=== PATIENT | female | born 1950 | race Caucasian/White ===

== ENCOUNTER 2019-06-06 13:42 | Emergency (ER) | payer MEDICARE, BC ==
[~2019-06-06] VITALS: Ht 165.1 cm; Wt 96.0 kg
[2019-06-06] MEDS ORDERED: HYDROcodone/acetaminophen 10/325mg tab PO ONE (15:25)
[2019-06-06] MEDS ORDERED: HYDR-4353 PO (16:08)
--- NOTE | 2019-06-06 16:17 | NUR ---
Waiting for tool and die technician to place splint.
--- NOTE | 2019-06-06 16:47 | NUR ---
CALLED ASSEMBLY TECHNICIAN [employer] [phone] NO ANSWER LEFT MESSAGE
[2019-06-06 17:24] VITALS: BP 145/88
--- NOTE | 2019-06-06 17:31 | NUR ---
public health technician coming on at 1800 for splint
--- NOTE | 2019-06-06 17:56 | NUR ---
medical imaging tech at bedside for splint.
[2019-06-06] MEDS ORDERED: HYDR-4383 PO (17:59)
--- NOTE | 2019-06-06 18:39 | NUR ---
PT FAMILY HERE TO INSURANCE BROKER PATIENT PT WHEELED TO CAR IN WHEEL CHAIR. NO QUESTIONS ASKED PT VERBALIZED UNDERSTANDING . TRANSFER SELF OUT OF WHEEL TO CHAIR WITHOUT INCIDENT .
== END 2019-06-06 18:40 | disposition home or self-care (01) ==
LOC: ER 13:43
DX: S82.841A Displaced bimalleolar fracture of right lower leg, initial encounter for closed fracture (principal); Z88.0 Allergy status to penicillin; Z79.899 Other long term (current) drug therapy; W01.0XXA Fall on same level from slipping, tripping and stumbling without subsequent striking against object, initial encounter; Y93.89 Activity, other specified; Y92.89 Other specified places as the place of occurrence of the external cause; Y99.8 Other external cause status
CPT/HCPCS: 29515; 73610; 99284

== ENCOUNTER 2019-06-23 15:11 | Outpatient (CLI) | payer MEDICARE, BC ==
[~2019-06-23 15:11] MED LIST: HYDR-4383 PO
== END 2019-06-23 17:00 | disposition home or self-care (01) ==
LOC: ORTHO 15:11
PROVIDERS: ATTEND Orthopaedic Surgery
DX: S82.841A Displaced bimalleolar fracture of right lower leg, initial encounter for closed fracture (principal); Z88.0 Allergy status to penicillin; Z79.899 Other long term (current) drug therapy; W01.0XXA Fall on same level from slipping, tripping and stumbling without subsequent striking against object, initial encounter; Y93.89 Activity, other specified; Y92.89 Other specified places as the place of occurrence of the external cause; Y99.8 Other external cause status
CPT/HCPCS: 73610; A4590; G0463

== ENCOUNTER 2019-07-14 15:50 | Outpatient (CLI) | payer MEDICARE, BC | END 2019-07-14 16:15 | disposition home or self-care (01) | LOC: ORTHO 15:50 | PROVIDERS: ATTEND Orthopaedic Surgery | DX: S82.491D Other fracture of shaft of right fibula, subsequent encounter for closed fracture with routine healing (principal); S82.51XA Displaced fracture of medial malleolus of right tibia, initial encounter for closed fracture; X58.XXXD Exposure to other specified factors, subsequent encounter; X58.XXXA Exposure to other specified factors, initial encounter; Y93.89 Activity, other specified; Y92.89 Other specified places as the place of occurrence of the external cause; Y99.8 Other external cause status; M77.31 Calcaneal spur, right foot | CPT/HCPCS: 73610; A4590; G0463 ==

== ENCOUNTER 2019-08-11 15:25 | Outpatient (CLI) | payer MEDICARE, BC | END 2019-08-11 16:12 | disposition home or self-care (01) | LOC: ORTHO 15:25 | PROVIDERS: ATTEND Orthopaedic Surgery | DX: S82.61XD Displaced fracture of lateral malleolus of right fibula, subsequent encounter for closed fracture with routine healing (principal); S82.51XD Displaced fracture of medial malleolus of right tibia, subsequent encounter for closed fracture with routine healing; M79.89 Other specified soft tissue disorders; M77.31 Calcaneal spur, right foot; X58.XXXD Exposure to other specified factors, subsequent encounter | CPT/HCPCS: 73610; G0463 ==

== ENCOUNTER 2024-03-06 09:29 | Emergency (ER) | payer MEDICARE, BC ==
[~2024-03-06] VITALS: Ht 165.1 cm; Wt 99.5 kg
[2024-03-06 11:10] VITALS: BP 157/73; PULSE 53; RESP 17; TEMP 98.2; O2SAT 98
== END 2024-03-06 11:12 | disposition home or self-care (01) ==
LOC: ER 09:29
DX: S93.401A Sprain of unspecified ligament of right ankle, initial encounter (principal); Z88.0 Allergy status to penicillin; Z91.012 Allergy to eggs; Z91.041 Radiographic dye allergy status; Z79.899 Other long term (current) drug therapy; X58.XXXA Exposure to other specified factors, initial encounter; Y93.89 Activity, other specified; Y92.89 Other specified places as the place of occurrence of the external cause; Y99.8 Other external cause status
CPT/HCPCS: 73610; 73630; 99284